=== PATIENT | female | born 1995 | race African-American/Black ===

== ENCOUNTER 2025-05-29 08:16 | Outpatient (AMB) | payer OTHER, SELFPAY ==
--- NOTE | 2025-05-29 08:17 | MHC.OFFVIS ---
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 She says that in the past she used to have recurrent symptoms and lasting for long period of time but more recently she noticed that she gets a squeezing sensation in left-sided chest which can last for couple of sec and she has to take a deep and symptoms resolved. This happens about 2 to 3 times a week. She says she exercises routinely and with exertional she does not get similar symptoms. She denies any lightheadedness, syncope. No shortness of breath, orthopnea, PND. She was adopted and does not not know much about her family history for any premature heart disease. She has no risk factors. She denies any significant eqha-orz-aopxadf medications. No drug use or smoking or alcohol. She says she has been to the emergency room with this chest discomfort and her blood workup and EKGs has been within normal limits. [facility] Social History Alcohol intake: never Patient Tobacco Use Status: Never used Tobacco Review of Systems Const Denies chills, Denies daytime sleepiness, Denies fatigue, Denies fever(s), Denies poor appetite, Denies snoring, Denies stops breathing during sleep, Denies weight gain and Denies weight loss Eyes Denies loss of vision Card Denies chest pain, Denies claudication, Denies leg edema, Denies lightheadedness, Denies palpitations, Denies dyspnea, Denies dyspnea on exertion and Denies orthopnea Resp Denies cough, Denies excessive phlegm production, Denies pain with cough, Denies dyspnea, Denies dyspnea on exertion, Denies snoring, Denies wheezing and Denies other GI Denies abdominal pain, Denies hematochezia, Denies change in bowel habits, Denies nausea and Denies vomiting Denies urinary frequency and Denies dysuria Musc Denies arthralgias and Denies muscle weakness Skin/Breast Denies nail changes and Denies rash Neuro Denies loss of vision and Denies memory loss Psych Denies depression, Reports difficulty concentrating, Denies auditory hallucinations and Denies memory loss Endo Denies fatigue and Denies palpitations Kwaku/Lymph Denies easy bruising Aller/Immun Denies wheezing Physical Exam Vital Signs: Last Vital Signs Pulse 68 05/29/25 08:18 BP 108/58 L 05/29/25 08:18 BMI result Body Mass Index 22.3 Const General: cooperative, comfortable, no acute distress, well developed, alert, awake and Physically active Nutritional Appearance: well nourished and thin Orientation/consciousness: patient oriented x3 Limitations: no limitations HEENT Head: Yes normocephalic and Yes atraumatic Neck Neck: Yes trachea midline, Yes supple and Yes no JVD Resp Effort & Inspection: normal respiratory effort Auscultation: clear to auscultation bilaterally Cardio Jugular venous distension: no JVD Rate: regular rate Rhythm: regular rhythm Heart sounds: S1 normal heart sound present, S2 normal heart sound present, no click, no gallops and no murmurs GI Auscultation: normal bowel sounds Skin General skin exam: no rashes or lesions noted Neuro General: patient oriented x3 and no focal motor deficits Extrem General: Yes no clubbing, cyanosis or edema Psych Appearance: grossly normal Office Procedures EKG Details: EKG shows normal sinus rhythm normal EKGs [id number], Complete Assessment & Plan Assessment & Plan (1) Atypical chest pain: Code(s): R07.89 - Other chest pain Category: Medical Plan: Patient was symptoms present for 2 years with no clear typical pattern that would suggest myocardial ischemia. More likely that these symptoms represent cardiac arrhythmias or extra systoles. However her EKGs have LV he has been normal. Less likely that she might have congenital coronary abnormalities. I would suggest given baseline normal EKGs to do exercise stress test to evaluate for exercise capacity, evaluate for myocardial ischemia especially related to coronary anomalies and exercise-induced arrhythmias. Will also suggest an echocardiogram to rule out any structural cardiac abnormality given lack of knowledge of family history for premature cardiac disease. Also suggest a Holter monitor to evaluate for presence of any arrhythmias especially extra systoles. This was discussed with her in details. Meanwhile I have advised no pharmacotherapy. She understands agrees. Avoidance of stimulants was discussed. Follow up in the clinic after above-mentioned test. Thank you for allowing me to partake in her care Orders: Orders CA stress test Today R07.89 - Other chest pain CA echo transthoracic complete Today R07.89 - Other chest pain ECG 7 day holter monitor Today R07.89 - Other chest pain Coding Level of Care Code New Pt Level 4 (72918) Complex EM visit Add On G2211 Diagnoses Atypical chest pain R07.89 CPT Codes EKG - CPT: 10006-[id number], Complete ([id number])
[2025-05-29 08:18] VITALS: BP 108/58; PULSE 68; BMI 22.3
== END 2025-05-29 08:47 | disposition home or self-care (01) ==
LOC: HO.HCS 08:16
PROVIDERS: Visit Provider Internal Medicine Cardiovascular Disease
DX: R07.89 Other chest pain (principal)
CPT/HCPCS: 93010; 99204; G2211

== ENCOUNTER → 2025-05-29 08:16 | Outpatient (BNVA) | payer OTHER, SELFPAY | PROVIDERS: Visit Provider Internal Medicine Cardiovascular Disease | DX: R07.89 Other chest pain (principal) | CPT/HCPCS: 93005 ==

== ENCOUNTER → 2025-06-13 07:49 | Outpatient (REF) | payer OTHER, SELFPAY ==
--- NOTE | 2025-06-13 07:52 | HM_ITS ---
* Total monitoring time 7 days. * Underlying rhythm is sinus with an average rate of 85/Min. * Rare ventricular ectopy. * No significant pauses or high-grade AV blocks. * Shortness of breath, chest discomfort, palpitations in patient diary correlates with sinus rhythm, sinus tachycardia. MTDD
== END ==
LOC: HO.CARD 07:49
PROVIDERS: PCP Internal Medicine; Visit Provider Internal Medicine Cardiovascular Disease
DX: R07.89 Other chest pain (principal)
CPT/HCPCS: 93242

== ENCOUNTER → 2025-06-13 07:52 | Outpatient (BNV) | payer OTHER, SELFPAY | PROVIDERS: PCP Internal Medicine; Visit Provider Internal Medicine | DX: I49.3 Ventricular premature depolarization (principal); R00.0 Tachycardia, unspecified | CPT/HCPCS: 93244 ==

== ENCOUNTER → 2025-07-04 08:07 | Outpatient (REF) | payer OTHER, SELFPAY ==
--- NOTE | 2025-07-04 08:10 | CA_ITS ---
Transthoracic Echocardiogram Patient (Last, First, Middle): Ilan Norton, Gender: Female Date of : 1995 Age: 29 Procedure Date: 07/04/2025 Procedure Type: Transthoracic Echocardiogram Location: OP Height: 162.56 cm Weight: 58.97 kg BSA: 1.63 m2 Heart Rate: bpm BP: 108 / 58 mmHg Ekg Monitor: BRANDT Referring MD: Houston Mathews MD Symptoms: R07.89 - Other chest pain Study Quality: Adequate ECG Rhythm: Sinus Conclusions: - The left ventricular systolic function is low normal. The visually estimated ejection fraction is between 50-55%. - No obvious valvular pathology seen on this study. Findings Left Ventricle Normal left ventricular cavity size. There is normal left ventricular wall thickness. The left ventricular systolic function is low normal. The visually estimated ejection fraction is between 50-55%. There is no evidence of regional wall motion abnormalities. Diastolic function is normal for age. Right Ventricle Normal right ventricular cavity size and systolic function. Atria Both atria are normal in size. Aortic Valve There is a normal trileaflet aortic valve. There is no aortic valve stenosis. There is no aortic valve regurgitation. Mitral Valve The mitral valve appears normal. There is no mitral valve regurgitation. There is no mitral valve stenosis. Pulmonic Valve The pulmonic valve is likely normal. Tricuspid Valve Normal tricuspid valve structure. There is mild tricuspid valve regurgitation. There is no evidence of pulmonary hypertension. Great Vessels The asc aorta and aortic arch are normal in size. Venous The inferior vena cava is normal in size and collapses greater than 50% with inspiration. Pericardium/Pleural There is no evidence of pericardial effusion. Prior Study Comparison No prior study available for comparison. Recommendations, Care & Conclusions No obvious valvular pathology seen on this study. Measurements 2D Linear Measurements IVSd: 0.86 0.6-0.9/0.6-1.0 cm LVIDd: 4.40 3.9-5.3/4.2-5.9 cm LVIDd Index: 2.70 2.4-3.2/2.2-3.1 cm/m2 LVIDs: 3.17 2.0-3.6 cm LVPWd: 0.70 0.7-1.1 cm LA Diam: 2.90 2.7-3.8/3.0-4.0 cm LAIDs Index: 1.78 1.5-2.3 cm/m2 LV Mass: 131.70 67-162/88-224 g LV Mass Index: 80.80 43-95/49-115 g/m2 LVOT Diam: 2.10 3.0+(-)1.3 cm 2D Systolic Function EF 4C: 51.50 >55% EF 2C: 60.00 >55% EF BiP: 55.50 >55% Mitral Valve MV Pk E: 0.71 MV PK A: 0.30 MV Decel Time: 217.00 E/A: 2.40 E'Lateral: 18.60 E'Medial: 11.60 E/E' Med: 6.10 E/E' Lat: 3.80 PHT: 64.00 MVA PHT: 3.44 Decel [place]: 3.28 Aortic Valve AoV Pk Geovany: 0.88 AoV Mn Geovany: 0.66 AoV VTI: 0.20 AoV Pk Grad: 3.00 Aov Mn Grad: 2.00 ZACHERY Cont.VTI: 2.62 LVOT LVOT Pk Geovany: 0.75 LVOT Mn Geovany: 0.50 LVOT VTI: 0.15 LVOT Pk Grad: 2.00 LVOT Mn Grad: 1.00 LVOT Diam: 2.10 LVOT Area: 3.46 Diastolic Function MV Pk E: 0.71 MV Pk A: 0.30 E/A: 2.40 E'Medial: 11.60 E/E' Med: 6.10 E' Laterial: 18.60 E/E' Lat: 3.80 Right Ventricle TAPSE (mm): 22.40 TVS' Geovany: 10.60 Tricuspid Valve TR Pk Geovany: 2.04 TR Pk Grad: 17.00 RA Press: 3.00 RVSP: 20.00 Great Vessels Aorta Sinus of Valsalva: 3.27 2.0-3.5 cm Ao Asc: 2.50 2.1-3.4 cm Ao Arch: 2.10 Pulmonary Veins Pulm Vein S/D 1.10 Updated in Other Vendor System with Status of Final Andrew Rubi MD electronically signed on 07/06/2025 11:52:34 AM with status of Final
--- NOTE | 2025-07-04 08:10 | CA_ITS ---
Acquisition Time: 2025-07-04 09:08:55 Total Exercise Time: 00:09:15 Test Indications: CP Medications: IRON Protocol: CHRISTIE Max HR: 166 BPM 87% of Pred: 189 BPM Max BP: 120/70 mmHG Max Work Load: 10.5 METS Exercise stress test with exercise 9 mins 15 secs of Christie Protocol, achieving 86% MPHR, with reports of 2/10 mid chest pressure in Stage 3 that resolved within few seconds and pt continued to exercise, without any arrythmias, with drop in BP with initial exercise that improved throught. Without any EKG changes meeting criteria for ischemia. In recovery, pt continued to feel well. Test reviewed with Dr. Rubi. Referred By: Houston Mathews Electronically Signed By: Shilo Aguirre
== END ==
LOC: HO.CARD 08:07
PROVIDERS: PCP Internal Medicine; Visit Provider Internal Medicine Cardiovascular Disease
DX: R07.89 Other chest pain (principal)
CPT/HCPCS: 93017; 93306

== ENCOUNTER → 2025-07-04 08:10 | Outpatient (BNV) | payer OTHER, SELFPAY | PROVIDERS: PCP Internal Medicine | DX: R07.89 Other chest pain (principal) | CPT/HCPCS: 93016; 93018; 93306 ==

== ENCOUNTER 2025-07-11 08:20 | Outpatient (AMB) | payer OTHER, SELFPAY ==
--- NOTE | 2025-07-11 08:25 | A.OFFVIS_ITS ---
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 She has experienced intermittent chest pressure for the last two years, which lasts for a few seconds and is associated with a sensation of needing to take a deep breath. These symptoms are not worsening or becoming more frequent. She underwent cardiac testing with an exercise stress test on 07/04/2025 showing exercise over 9 minutes with fleeting chest pressure during exercise without EKG changes meeting criteria for ischemia. An echocardiogram done 07/04/2025 showed EF 50-55%, no wall motion abnormalities and no valve abnormalities. A Holter monitor for 7 days 06/13/2025 showed sinus rhythm with average heart rate 85 beats per minute, rare ventricular ectopy. Her EKG shows normal sinus rhythm with normal VT, QRS and QTC intervals. She reports 2 episodes of syncope this year, which prompted her to seek further medical evaluation. The last syncopal episode occurred in April. She describes one episode that occurred while she was angry and arguing on the phone, and another that occurred while she was working at home. The syncopal episodes are not preceded by her chest discomfort, although she sometimes feels weird beforehand. She has believing the episodes are related to high stress levels. Her past medical history is not significant and she has no history of blood sugar issues. She takes an iron supplement and a multivitamin, but no cardiac medications. She exercises daily at a gym, doing cardio and leg workouts, but sometimes experiences episodes of lightheadedness with quick position changes. She tries to remain well hydrated.. [facility] Social History Alcohol intake: never Patient Tobacco Use Status: Never used Tobacco Review of Systems Const All systems reviewed & are unremarkable except as noted in HPI and below ENT Denies dizziness Card Details: fainting X2 Reports chest pain, Denies chest pain at rest, Denies chest pain with activity, Denies rapid heart rate, Denies pedal edema, Denies edema, Denies leg edema, Denies lightheadedness, Denies palpitations, Denies dyspnea, Denies dyspnea on exertion and Denies orthopnea Resp Denies cough, Denies dyspnea and Denies dyspnea on exertion GI Denies hematochezia and Denies change in stool character Musc Denies abnormal gait, Denies limited range of motion, Denies muscle cramps, Denies muscle weakness, Denies numbness, Denies radiating pain into limb, Denies stiffness and Denies tingling Neuro Denies abnormal gait, Denies dizziness, Denies numbness and Denies tingling Endo Denies palpitations Physical Exam Vital Signs: Last Vital Signs Pulse 85 07/11/25 08:26 BP 90/72 07/11/25 08:26 BMI result Body Mass Index 23.2 Const General: cooperative, healthy appearing, comfortable and no acute distress Orientation/consciousness: patient oriented x3 Neck Neck: Yes normal visual inspection Resp Effort & Inspection: normal respiratory effort Auscultation: clear to auscultation bilaterally, no crackles, no rales, no rhonchi and no wheezes Cardio Rate: regular rate Rhythm: regular rhythm Heart sounds: S1 normal heart sound present, S2 normal heart sound present, no gallops, no murmurs and no rubs Neuro General: patient oriented x3 Extrem General: Yes normal to inspection, No no pedal edema and No calf tenderness Psych Appearance: grossly normal Mental Status: mental status grossly normal Speech and movement: Normal speech and movement present Assessment & Plan Assessment & Plan (1) Atypical chest pain: Code(s): R07.89 - Other chest pain Category: Medical Plan: Atypical chest discomfort. Cardiac evaluation without evidence that her symptoms are cardiac related. Offered reassurance. Recommend evaluate way fashion for noncardiac causes if symptoms persist. (2) Syncope: Code(s): R55 - Syncope and collapse Category: Medical Plan: Reports 2 syncopal episodes, under high stress situations. Possible vasovagal versus orthostatic. Blood pressure on low side today. Reviewed the need for g ood hydration. Stress reduction activities reviewed. If recurrent episodes then will check a tilt-table test. Plan I discussed with the patient that her comprehensive cardiac workup, including an EKG, Holter monitor, stress test, and echocardiogram, was normal. I reassured her that there is no evidence her chest discomfort is coming from her heart and that it could be related to other causes like chest wall or esophageal issues. We discussed her episodes of fainting, and I advised her to contact us if she has another episode so we can pursue further testing. I noted her low blood pressure as a likely contributing factor and advised her to stay well hydrated, add some salt to her diet, and use electrolyte beverages when she exercises. I recommended that she follow up on an as-needed basis for ongoing issues. Patient Instructions: - All of your recent heart tests have come back normal, and there is no evidence that the discomfort in your chest is related to your heart. - If you have another episode of fainting, please let our office know, as we may need to do more tests. - Your blood pressure is on the low side, which can cause you to feel dizzy or faint. Make sure to drink plenty of fluids to stay well hydrated. - You can add a little more salt to your food to help with your low blood pressure. - When you exercise, drink a sports drink with electrolytes, like Powerade or Gatorade, to help keep your blood pressure up. - It is important to drink fluids before you begin exercising. If you feel dizzy, stop and rest. - You only need to follow up with our office if your symptoms change or you have more concerns. Patient was informed and verbally consented to the use of an ambient scribe for clinic note documentation during this visit. Visit time spent on chart review, interview, assessment, orders, documentation. Coding Level of Care Code Est Pt Level 3 (59015) Add On Problem Visit Only Diagnoses Atypical chest pain R07.89 Syncope R55 Time Spent (min) 24
[2025-07-11 08:26] VITALS: BP 90/72; PULSE 85; BMI 23.2
== END 2025-07-11 08:50 | disposition home or self-care (01) ==
LOC: HO.HCS 08:20
PROVIDERS: PCP Internal Medicine; Visit Provider Nurse Practitioner Family
DX: R07.89 Other chest pain (principal); R55 Syncope and collapse
CPT/HCPCS: 99213; G2211